=== PATIENT | female | born 1960 | race Caucasian/White ===

== ENCOUNTER 2016-12-09 16:23 | Outpatient (CLI) | payer SELFPAY | END 2016-12-09 19:33 | disposition home or self-care (01) | LOC: SMA 16:23 | PROVIDERS: ATTEND Surgery Vascular Surgery | DX: Z12.31 Encounter for screening mammogram for malignant neoplasm of breast (principal) | CPT/HCPCS: G0202 ==

== ENCOUNTER 2019-08-24 17:17 | Emergency (ER) | payer SELFPAY ==
[~2019-08-24] VITALS: Ht 160 cm; Wt 113.4 kg
[2019-08-24 17:17] VITALS: BP_SYST 118
--- NOTE | 2019-08-24 17:17 | NUR ---
BROUGHT IN BY [facility], PLACED IN BED #2 AND TRIAGED. REPORT GIVEN TO THU
--- NOTE | 2019-08-24 17:30 | NUR ---
Pt came to ER for varicose vein bleed and hypotension. Pt on arrival had stable blood pressure 118 systolic, does not complain of pain, bleeding under control, on monitor
--- NOTE | 2019-08-24 17:40 | NUR ---
ER at bedside examining patient.
[2019-08-24] MEDS ORDERED: NACL 0.9% 1,000 ML IV ONE (17:45)
[2019-08-24 17:51] LABS: BASOPHILS # (AUTO) 0.1 K/uL (0.0-0.2); BASOPHILS % (AUTO) 0.7 % (0.0-2.0); EOSINOPHILS # (AUTO) 0.1 K/uL (0.0-0.4); EOSINOPHILS % (AUTO) 0.8 % (0.0-4.0); HEMATOCRIT 34.8 % (36-48); HEMOGLOBIN 11.5 g/dL (12.0-16.0); LYMPHOCYTES % (AUTO) 25.9 % (20.5-51.5); MEAN CORPUSCULAR HEMOGLOBIN 31 pg (27-31); MEAN CORPUSCULAR HGB CONC 33 % (32-36); MEAN CORPUSCULAR VOLUME 93 fL (79.0-98.0); MONOCYTES # (AUTO) 0.5 K/uL (0.0-1.0); MONOCYTES % (AUTO) 4.7 % (1.7-9.3); NEUTROPHILS # (AUTO) 7.8 K/uL (1.8-7.7); NEUTROPHILS % (AUTO) 67.9 % (40.0-70.0); PLATELET COUNT (AUTO) 248 K/uL (130-430); RED BLOOD CELL COUNT(AUTO) 3.75 MIL/uL (4.2-6.2); WHITE BLOOD COUNT (AUTO) 11.5 K/uL (4.8-10.8)
[2019-08-24] MEDS ORDERED: LIDOCAINE 1% 10 MG/ML, 20 ML MDV INJ ONE (18:00)
--- NOTE | 2019-08-24 18:01 | NUR ---
SPOKE WITH PTS DAUGHTER REINALDO, STATES TO CALL HER WHEN PT IS READY TO BE DISCHARGED. REINALDO
[2019-08-24 18:07] LABS: CALCIUM 8.3 mg/dL (8.4-11.0); CREATININE 0.85 mg/dL (0.55-1.30); POTASSIUM 3.7 mmol/L (3.5-5.1)
[2019-08-24 18:13] LABS: ALBUMIN 3.2 g/dL (3.4-4.8); TOTAL BILIRUBIN 0.5 mg/dL (0.0-1.0)
[2019-08-24] MEDS ORDERED: BACITRACIN 1 GM OINT TP ONE ×2 (18:15→18:25)
[2019-08-24 19:12] VITALS: BP_SYST 118
--- NOTE | 2019-08-24 19:13 | NUR ---
Patient given written and verbal discharge instructions and verbalizes understanding. ER MD discussed with patient the results and treatment provided. Patient in stable condition. ID arm band removed. Patient educated on pain management and to follow up with PMD. Pain Scale 0/10. Opportunity for questions provided and answered. Medication side effect fact sheet provided.
== END 2019-08-24 19:12 | disposition home or self-care (01) ==
LOC: SED 17:17
DX: S81.812A Laceration without foreign body, left lower leg, initial encounter (principal); X58.XXXA Exposure to other specified factors, initial encounter; Y93.89 Activity, other specified; Y92.89 Other specified places as the place of occurrence of the external cause; Y99.8 Other external cause status
CPT/HCPCS: 12001; 36415; 80053; 85025; 86886; 86900; 86901; 99283; J2001; J7030